=== PATIENT | female | born 1980 | race Caucasian/White ===

== ENCOUNTER 2016-08-28 14:57 | Emergency (ER) | payer MEDICAID ==
[~2016-08-28] VITALS: Ht 167.6 cm; Wt 115.0 kg
[2016-08-28 15:01] VITALS: TEMP 99.5
[2016-08-28] MEDS ORDERED: NOVOLOGMIX70/30 (15:08)
[2016-08-28] MEDS ORDERED: RESTASIS 60VL (15:09)
[2016-08-28] MEDS ORDERED: TIROSINT25 MC1 PO (15:09)
[2016-08-28] MEDS ORDERED: ZESTRIL40 MG PO (15:09)
[2016-08-28] MEDS ORDERED: LYRICA 100MG C100 M1 PO (15:10)
[2016-08-28] MEDS ORDERED: HCTZ12.5TAB PO (15:10)
[2016-08-28] MEDS ORDERED: PRILOSEC 20MG20 MG PO (15:11)
[2016-08-28] MEDS ORDERED: LIPITOR 10MG10 MG PO (15:11)
[2016-08-28] MEDS ORDERED: ILOTYCIN5 MG/GM OP (15:11)
[2016-08-28] MEDS ORDERED: LANTUS100 U/ML SQ (15:11)
[2016-08-28] MEDS ORDERED: PERCOCET 325 MG1 TA3 PO (15:12)
[2016-08-28 16:25] LABS: BASO # 0.1 (0.0-0.2); BASO % 0.5 % (0.0-2.0); EOS # 0.2 (0.0-0.7); EOS % 1.3 % (0-4.0); GRAN # 7.1 (1.4-6.5); GRAN % 60.8 % (42.2-75.2); LYMPH # 3.6 (1.2-3.4); LYMPH % 31.1 % (20.0-51.0); MEAN CELL VOLUME 86 fl (80.0-100.0); MEAN CORPUSCULAR HGB CONC 32 g/dl (33.0-37.0); MEAN PLATELET VOLUME 11.8 fl (7.4-10.4); MONO # 0.7 (0.1-0.6); MONO % 5.9 % (1.7-9.3); PLATELET COUNT 184 K/mm3 (130-400); RED BLOOD COUNT 4.17 M/mm3 (4.10-5.30); REDCELL DISTRIBUTION WIDTH-CV 12.9 % (11.5-14.5); WHITE BLOOD COUNT 11.7 K/mm3 (4.8-10.8)
[2016-08-28 16:26] LABS: HEMATOCRIT 35.8 % (37.0-47.0); HEMOGLOBIN 11.6 g/dl (12.5-16.0); MEAN CORPUSCULAR HEMOGLOBIN 28 pg (27.0-31.0)
[2016-08-28 17:04] LABS: ADJUSTED CALCIUM 9.7 mg/dL (8.4-10.2); ALBUMIN 3.4 gm/dL (3.5-5.0); BILIRUBIN,TOTAL 0.8 mg/dL (0.0-1.0); C-REACTIVE PROTEIN 5.4 mg/dL (0.0-0.9); CALCIUM 9.2 mg/dL (8.4-10.2); CREATININE, serum 1.26 mg/dL (0.52-1.25); POTASSIUM 3.5 mmol/L (3.4-5.0); TOTAL PROTEIN 7.7 gm/dL (6.4-8.2)
[2016-08-28] MEDS ORDERED: CLEOCIN HCL300 MG PO (17:39)
[2016-08-28 18:30] VITALS: BP 159/72; PULSE 92
== END 2016-08-28 18:30 | disposition home or self-care (01) ==
LOC: COL.ER 14:57
PROVIDERS: Emergency Medicine
DX: L03.116 Cellulitis of left lower limb (principal); E11.40 Type 2 diabetes mellitus with diabetic neuropathy, unspecified; E11.649 Type 2 diabetes mellitus with hypoglycemia without coma; Z79.4 Long term (current) use of insulin; I10 Essential (primary) hypertension
CPT/HCPCS: J7030

== ENCOUNTER 2021-05-01 16:46 | Inpatient (IN) | payer MEDICARE, MEDICAID ==
[~2021-05-01] VITALS: Ht 167.6 cm; Wt 107.6 kg
[~2021-05-01 16:46] MED LIST: CLEOCIN HCL300 MG PO; HCTZ12.5TAB PO; ILOTYCIN5 MG/GM OP; LANTUS100 U/ML SQ; LIPITOR 10MG10 MG PO; LYRICA 100MG C100 M1 PO; NOVOLOGMIX70/30; PERCOCET 325 MG1 TA3 PO; PRILOSEC 20MG20 MG PO; RESTASIS 60VL; TIROSINT25 MC1 PO; ZESTRIL40 MG PO
[2021-05-01 18:45] LABS: MEAN CELL VOLUME 98 fl (80.0-100.0); MEAN CORPUSCULAR HGB CONC 30 g/dl (33.0-37.0); MEAN PLATELET VOLUME 10.9 fl (7.4-10.4); PLATELET COUNT 467 K/mm3 (130-400); REDCELL DISTRIBUTION WIDTH-CV 15.9 % (11.5-14.5)
[2021-05-01 18:59] LABS: INR 1.3 (0.8-3.0); PROTHROMBIN TIME 14.6 SECONDS (9.7-12.8)
[2021-05-01 19:01] LABS: PARTIAL THROMBOPLASTIN TIME 29.1 SECONDS (26.0-37.0)
[2021-05-01 19:04] LABS: HEMATOCRIT 22.5 % (37.0-47.0); HEMOGLOBIN 6.8 g/dl (12.5-16.0); MEAN CORPUSCULAR HEMOGLOBIN 30 pg (27.0-31.0)
[2021-05-01 19:06] LABS: ALBUMIN 3.3 gm/dL (3.5-5.0); BILIRUBIN,TOTAL 0.3 mg/dL (0.0-1.0); CALCIUM 8.1 mg/dL (8.4-10.2); CREATININE, serum 3.93 (0.52-1.25); POTASSIUM 4.2 mmol/L (3.4-5.0); TOTAL PROTEIN 7.1 gm/dL (6.4-8.2)
[2021-05-01 19:17] LABS: TROPONIN-I 0.013 ng/mL (0.000-0.035)
[2021-05-01 19:39] LABS: ANISOCYTOSIS 1+; BAND 3 % (0-10); EOSINOPHIL 3 % (0-4); HYPOCHROMIA 1+; LYMPHOCYTE 15 % (20.0-51.0); METAMYELOCYTE 1 % (0-0); NEUTROPHILS 71 % (42.0-75.2); PLATELET ESTIMATE INCREASED (NORMAL)
[2021-05-01 19:40] LABS: OVALOCYTES 1+; POIKILOCYTOSIS 1+
[2021-05-01] MEDS ORDERED: AMITRIPTYLINE H50 M1 (20:38)
[2021-05-01] MEDS ORDERED: PROTONIX 40MG T40 MG (20:39)
[2021-05-01] MEDS ORDERED: ZYLOPRIM 100MG100 MG (20:39)
[2021-05-01] MEDS ORDERED: PROAMATINE 5MG T5 MG (20:40)
[2021-05-01] MEDS ORDERED: COUMADIN 1MG1 MG/TAB (20:41)
[2021-05-01] MEDS ORDERED: LYRICA 100MG C100 M1 (20:42)
[2021-05-01] MEDS ORDERED: LIPITOR20 MG (20:43)
[2021-05-01] MEDS ORDERED: COUMADIN 5MG5 MG/TAB (20:44)
[2021-05-01] MEDS ORDERED: LASIX 40MG TABL40 MG (20:45)
[2021-05-01 22:15] LABS: RETIC # 0.07 M/mm3 (0.02-0.16); RETIC % 2.9 % (0.5-3.52)
[2021-05-01 22:19] VITALS: BP 104/61; PULSE 102; TEMP 98.6
[2021-05-01 22:20] LABS: IRON,SERUM 33 ug/dL (35-150)
[2021-05-01 22:25] VITALS: BP 104/61; PULSE 102; TEMP 98.6
[2021-05-01 22:29] LABS: TOTAL IRON BINDING CAPACITY 159 ug/dL (265-497)
[2021-05-02] VITALS (14 sets, daily range): BP systolic 86–135; BP diastolic 45–68; PULSE 77–98; TEMP 97.5–98.6
--- NOTE | 2021-05-02 00:44 | NUR ---
Vancomycin Initial Dosing Pharmacy Note Ordering provider: Fareed Brown MD Indication/duration: OSTEO / 7 DAYS Relevant comorbidities: DM, ESRD ON HD MWF GOAL: 15-20 BMI: 37.7 WT: 105.9KG SCR:3.93 (ON HD) VD: 74.13 TMAX: 99.5 WBC: 18.7 WOUND CX AND BLOOD CX PENDING FOOT XR REPORTING CONCERN FOR INFECTIOUS PROCESS PER REPORT PT WAS PREVIOUSLY AT OSH AND RECEIVING IV ABX FOR TREATMENT. AFTER DISCUSSION WITH RN, PT, AND OSH HOUSE SUPRIVISER, IT WAS DETERMINED THAT THE PT RECEIVED 1GM OF VANCO ON 04/28/21 AND THE PT HAD DIALYZED LAST ON 05/01 FOR 4.5 HOURS. A RANDOM VANC LEVEL WAS OBTAINED AND REPORTED BACK AT 13.03. WILL PLAN TO DOSE BY LEVELS BASED ON HD SCHEDULE. WILL GIVE AN ADDITIONAL 750 MG DOSE TO [employer]ATIN [employer] LEVEL OF ~23. WILL FOLLOW HD SCHEDULE, LEVELS, AND TREATMENT PLANS FOR NEED TO ADJUST THERAPY. THANK YOU FOR THIS DOSING CONSULT!
--- NOTE | 2021-05-02 02:01 | NUR ---
PT BLOOD PRESSURE DURING 0000 VS WAS LOW, MAP OF 63. RECHECKED, DBP INCREASED TO 56. WILL CONTINUE TO MONITOR.
--- NOTE | 2021-05-02 04:06 | NUR ---
ORLIN RANDALL NOTIFIED OF LOW BP. RECHECKED MANUALLY AT THIS TIME. 98/60. INSTRUCTED TO MONITOR. PT CURRENTLY DENIES DIZZINESS, LIGHTHEADEDNESS OR SOA.
--- NOTE | 2021-05-02 04:46 | NUR ---
ORLIN RANDALL NOTIFIED TO VERIFY OKAY TO GIVE MORPHINE WITH DEPRESSED BLOOD PRESSURES. RECEIVED VERBAL VERIFICATION OKAY TO GIVE IF PATIENT REQUESTING.
[2021-05-02 07:06] LABS: MEAN CELL VOLUME 96 fl (80.0-100.0); MEAN CORPUSCULAR HGB CONC 30 g/dl (33.0-37.0); MEAN PLATELET VOLUME 11.4 fl (7.4-10.4); RED BLOOD COUNT 2.02 M/mm3 (4.10-5.30); REDCELL DISTRIBUTION WIDTH-CV 15.8 % (11.5-14.5)
[2021-05-02 07:15] LABS: HEMATOCRIT 19.3 % (37.0-47.0); HEMOGLOBIN 5.8 g/dl (12.5-16.0); MEAN CORPUSCULAR HEMOGLOBIN 29 pg (27.0-31.0); PLATELET COUNT 359 K/mm3 (130-400)
[2021-05-02 07:16] LABS: CALCIUM 7.4 mg/dL (8.4-10.2); CREATININE, serum 5.08 (0.52-1.25); POTASSIUM 3.3 mmol/L (3.4-5.0)
--- NOTE | 2021-05-02 07:18 | NUR ---
Critical hemoglobin result of 5.8 this am. ORLIN Kuo notified on the telephone.
--- NOTE | 2021-05-02 09:08 | NUR ---
SW met with the patient to discuss discharge plan. The patient lives in [place] with her mother, Radha Swift (ph#[phone]). She reports independence with ADLs and has a walker. She states that she just ordered a wheelchair and that it should be coming in soon. She states that her family is also putting in a wheelchair ramp. The patient states that she was set up with the primary care provider Angie Archer APRN at [facility]; but that she has not seen her yet. She receives her medications from [facility] in . She reports no difficulties obtaining her meds. The patient does not have a DPOA-HC, but she states that she does have one completed and that she designated her father, Victorino. She states that her father is in the hospital right now too and does not think he would be able to answer the phone. She reports that [facility] may have a copy of the document. The patient states that she is not and does not have any children. Her parents are her next of kin. The patient plans to return home with her mother upon discharge. SW to continue to monitor. *Discharge plan: home with mother*
[2021-05-02 10:01] LABS: BAND 4 % (0-10); EOSINOPHIL 2 % (0-4); HYPOCHROMIA 1+; LYMPHOCYTE 17 % (20.0-51.0); METAMYELOCYTE 2 % (0-0); NEUTROPHILS 63 % (42.0-75.2)
[2021-05-02 10:04] LABS: PLATELET ESTIMATE NORMAL (NORMAL)
[2021-05-02] MEDS ORDERED: INSULIN AS100 UNIT/4 SQ ×2 (12:17→12:19)
--- NOTE | 2021-05-02 17:11 | NUR ---
Pt. in MRI at this moment. Pt. progressing w/ plan of care. Original plan was for pt. to get dialysis after the MRI at 1430 today. MRI was not on schedule and pt. was picked up for the MRI around 1610. Plan was for PRBcs to be given in dialysis. Dialysis has been postponed today because pt. is still not back from the MRI. ORLIN Kuo and Dr. Benoit aware. Plan for pt. to get back from MRI and received the blood transfusion upon her return.
--- NOTE | 2021-05-02 23:12 | NUR ---
PT AMBULATED TO COMMODE, BLOOD NOTED IN URINE. ONE CLOT PRESENT.
--- NOTE | 2021-05-02 23:13 | NUR ---
PT BLOOD TRANSFUSTION ENDED AT 2245. PT TOLERATED WELL. VITAL SIGNS STABLE THROUGHOUT ADMINISTRATION.
--- NOTE | 2021-05-02 23:13 | NUR ---
PT IV SITE LEAKING, ATTEMPT OF REDRESS AND FLUSH, IV SITE CONTINUED TO LEAK. DISCONTINUED. NOTIFIED CHARGE NURSE OF HARD STICK.
[2021-05-02 23:33] LABS: HEMATOCRIT 27.3 % (37.0-47.0); HEMOGLOBIN 8.4 g/dl (12.5-16.0)
--- NOTE | 2021-05-02 23:35 | NUR ---
PT ULCERS RINSED WITH NORMAL SALINE, NEW NON-ADHERENT PADS PLACED.
--- NOTE | 2021-05-02 23:39 | NUR ---
ORLIN RANDALL NOTIFIED OF INCREASED H&H AFTER UNIT OF BLOOD. ALSO NOTIFIED OF HARD STICK AND LEAKING IV SITE, REQUEST CHANGE CLEOCIN TO PO ADMINISTRATION.
--- NOTE | 2021-05-02 23:46 | NUR ---
PT ALERT AND ORIENTED. PT RECEIVED UNIT OF BLOOD. PT ULCERS WRAPPED BY DAY SHIFT WITH GAUZE AND NON-ADHERENT PADS. REMOVED PER PATIENT REQUEST. PT LUNGS CLEAR UPON AUSCULTATION. ACTIVE BOWEL SOUNDS. PT CALL LIGHT WITHIN REACH.
[2021-05-03] VITALS (9 sets, daily range): BP systolic 100–132; BP diastolic 42–86; PULSE 91–113; TEMP 97.7–99.1
--- NOTE | 2021-05-03 04:02 | NUR ---
TROUBLE WITH DYNAMAP READING BLOOD PRESSURE, TAKEN MANUALLY AT THIS TIME. 132/86
[2021-05-03 07:26] LABS: MEAN CELL VOLUME 92 fl (80.0-100.0); MEAN CORPUSCULAR HGB CONC 31 g/dl (33.0-37.0); RED BLOOD COUNT 2.52 M/mm3 (4.10-5.30); REDCELL DISTRIBUTION WIDTH-CV 17.4 % (11.5-14.5)
--- NOTE | 2021-05-03 07:36 | NUR ---
Pt. progressing w/ plan of care. Plan for dialysis this AM, call received from Lynette, plan for dialysis at 0830. Breakfast ordered. Pt. with UROGYNECOLOGY PHYSICIAN at this time, OOB to use the bathroom. Safety maintained.
[2021-05-03 07:37] LABS: CALCIUM 7.4 mg/dL (8.4-10.2); CREATININE, serum 5.53 (0.52-1.25); HEMATOCRIT 23.2 % (37.0-47.0); HEMOGLOBIN 7.1 g/dl (12.5-16.0); MAGNESIUM 2.1 mg/dL (1.6-2.3); MEAN CORPUSCULAR HEMOGLOBIN 28 pg (27.0-31.0); PLATELET COUNT 188 K/mm3 (130-400); POTASSIUM 4.3 mmol/L (3.4-5.0)
--- NOTE | 2021-05-03 07:41 | NUR ---
PT CONTINUING ON PLAN OF CARE. PT HGB AND HCT INCREASED AFTER UNIT OF BLOOD. PT IV UNABLE TO BE RESTARTED THIS SHIFT, ABX AND PRN PAIN MEDICATION CHANGED TO ORAL ADMINISTRATION. PT FREE FROM INJURY THIS SHIFT. WOUND CARE PROVIDED TO BEST OF ABILITY, INFECTION MANAGED WITH ANTIBIOTICS.
[2021-05-03 08:45] LABS: BAND 1 % (0-10); EOSINOPHIL 4 % (0-4); LYMPHOCYTE 23 % (20.0-51.0); NEUTROPHILS 68 % (42.0-75.2)
[2021-05-03 08:46] LABS: ANISOCYTOSIS 1+; HYPOCHROMIA 3+; PLATELET ESTIMATE NORMAL (NORMAL)
--- NOTE | 2021-05-03 10:47 | NUR ---
New consults for the pt. today. stock clerk self service store Liz called and spoke with consult for surgery. Shruthi left a message for Dr. Kaminski for urology. This RN just called in consult w/ Dr. Almanza from ID. Pt. still in dialysis at the moment.
--- NOTE | 2021-05-03 12:01 | NUR ---
Patient tolerated HD tx with 4.1 L fluid removal today. Next planned HD tx on Saturday05/05/21 @ 0800.
--- NOTE | 2021-05-03 18:53 | NUR ---
Call received from PACU staff member the pt. now has a central line and is on her way back to the floor. Will check in to see if pt. is back and assess. Oncoming RN will be taking over shortly.
--- NOTE | 2021-05-03 22:30 | NUR ---
Patient is lying in bed, alert and oriented x4, complains of pain in both feet Morphine provided. No nausea or vomiting. SCDs in place. Contact precautions (MRSA). Asssessment completed. No further needs at this time. Call ligth within reach.
[2021-05-04] VITALS (213 sets, daily range): BP systolic 106–126; BP diastolic 55–89; PULSE 84–99; TEMP 98–99; O2SAT 77–100
--- NOTE | 2021-05-04 01:23 | NUR ---
Patient removed the gauze placed for both feet. The heel in the right looks dry. The left foot is warm, purple and immflamated. Patient refused to replace dressing stating it is too hot for her. Refused SCDs. Patient was reminded to keep DESULFURIZER MACHINE after asking for some jello. No further needs at this time. Call light within reach.
--- NOTE | 2021-05-04 07:05 | NUR ---
Patient has had a calm night. She required PRN medication for her feet. Waiting for her procedure today. Shift report will be given.
--- NOTE | 2021-05-04 07:37 | NUR ---
Pt. progressing w/ plan of care. Pt. sitting up in bed, awake. Pt. has been NPO since midnight for surgery today. Call light and belongings in reach.
[2021-05-04 07:57] LABS: MEAN CELL VOLUME 94 fl (80.0-100.0); MEAN CORPUSCULAR HGB CONC 30 g/dl (33.0-37.0); MEAN PLATELET VOLUME 11.2 fl (7.4-10.4); PLATELET COUNT 213 K/mm3 (130-400); REDCELL DISTRIBUTION WIDTH-CV 17.9 % (11.5-14.5)
[2021-05-04 07:58] LABS: CALCIUM 7.9 mg/dL (8.4-10.2); CREATININE, serum 4.91 (0.52-1.25); HEMATOCRIT 25.3 % (37.0-47.0); HEMOGLOBIN 7.6 g/dl (12.5-16.0); MEAN CORPUSCULAR HEMOGLOBIN 28 pg (27.0-31.0); POTASSIUM 4.8 mmol/L (3.4-5.0)
--- NOTE | 2021-05-04 08:06 | NUR ---
Call received from ORLIN Kuo, Shiela reports the radiologist called her to let her know the pt.'s central line IJ to her right neck would need to be pulled back 3cm. The superintendent warehouse Jaden was called to inquire who would need to pull back the central line 3cm. Jaden reports the surgeon will need to complete this task. Dr. Manuel notified on the telephone. Dr. Manuel aware, he reports he will be by some time this AM or this afternoon to pull back the central line 3cm. Dr. Manuel was inquiring if the central line worked. This RN explained to Dr. Manuel the central line still works and has positive blood return. Dr. Manuel OK with the central line to be used at this moment and he will make the adjustment today.
--- NOTE | 2021-05-04 10:16 | NUR ---
Pt. reports a ringing in her ears. ORLIN Kuo made aware, team in to round and assess pt. at this time.
[2021-05-04 16:43] LABS: ARTERIAL BLD GAS O2 SATURATION 98.3 % (92-100); ARTERIAL BLD GAS TCO2 CT 26.8; ARTERIAL BLOOD GAS BASE EXCESS 0.1 (-2-2); ARTERIAL BLOOD GAS HCO3 25.4 meq/L (22-26); ARTERIAL BLOOD GAS PCO2 44.6 mmHg (35-45); ARTERIAL BLOOD GAS PO2 116.2 mmHg (80-100); ARTERIAL BLOOD GAS pH 7.37 (7.35-7.45)
--- NOTE | 2021-05-04 16:45 | NUR ---
PT TRANSFERED DOWN FROM SURGICAL POST OP FOR RESPIRATORY DEPRESSION. PT IS LETHARGIC BUT ORIENTED. PT OPENS EYS TO VOICE. PT'S VSS. PT ON 4L SIMPLE MASK. PT HAS DRESSING TO LEFT FOOT FROM OR. PT HAS AN ULCER TO RIGHT HEEL AND DRESSING CHANGED. PT ORIENTED TO ROOM AND FLOOR. BG TAKEN. PT'S DAD UPDATED. WILL CONTINUE TO MONITOR.
[2021-05-04 16:56] LABS: ALBUMIN 3.1 gm/dL (3.5-5.0); BILIRUBIN,TOTAL 0.3 mg/dL (0.0-1.0); CALCIUM 7.8 mg/dL (8.4-10.2); CREATININE, serum 5.4 (0.52-1.25); POTASSIUM 5.6 mmol/L (3.4-5.0); TOTAL PROTEIN 6.8 gm/dL (6.4-8.2)
[2021-05-04 16:58] LABS: MEAN CELL VOLUME 93 fl (80.0-100.0); MEAN CORPUSCULAR HGB CONC 30 g/dl (33.0-37.0); MEAN PLATELET VOLUME 10.5 fl (7.4-10.4); RED BLOOD COUNT 2.58 M/mm3 (4.10-5.30); REDCELL DISTRIBUTION WIDTH-CV 17.8 % (11.5-14.5)
--- NOTE | 2021-05-04 17:00 | NUR ---
Pt. came back from the OR procedure and brought to her room. This RN was in another pt.'s room at the time of the pt.'s arrival. This RN was notified the pt. was not responding. The pt. had a pulse but appeared to be in respiratory distress. This RN communicated w/ Dr. Schmidt and ORLIN Kuo to let them know pt. just came back to the OR and this RN hadn't yet been in the room. retail supervisor Jaden and ICU staff in to help assist with pt.'s condition. Pt. was able to speak to staff and answer questions but still drowsy. Pt. was placed on oxygen. Pt. was transferred to the ICU bed 3. Report given to KAREN Valdez.
[2021-05-04 17:05] LABS: HEMATOCRIT 24.1 % (37.0-47.0); HEMOGLOBIN 7.2 g/dl (12.5-16.0); MEAN CORPUSCULAR HEMOGLOBIN 28 pg (27.0-31.0); PLATELET COUNT 420 K/mm3 (130-400)
--- NOTE | 2021-05-04 17:30 | NUR ---
At [facility] 1623 I was called to code blue in room 316. Upon arrival in room there were about 10 people in the room, a mix of nurses and Dr. Schmidt. As the ICU Charge, I took it upon myself to ask all unnecessary staff to exit the room, leaving about 5-6 essential persons in the room. This RN performed an initial assessment. Patient was not responding to stimulation, pulses present, respirations not seen and SPO2 in 50-60s%. Patient was bagged and I asked for anesthesia to come into the room to evaluation patient and possibly intubate if she continued this way. Anesthesia enters the room, briefly bags patient, performs jaw thrust for a few minutes. Patient taking slow deep breaths, and eventually rouses to stimulation and speech. Labs, ABG, EKG taken. BP hypertensive throughtout the situation. Dr. Schmidt orders for patient to be transferred to ICU for closer monitoring. Patient taken to ICU room 3 by myself and KAREN Salinas transfer to ICU.
[2021-05-04 18:35] LABS: ANISOCYTOSIS 1+; BAND 2 % (0-10); HYPOCHROMIA 3+; LYMPHOCYTE 24 % (20.0-51.0); NEUTROPHILS 69 % (42.0-75.2); POLYCHROMASIA 1+
[2021-05-05] VITALS (724 sets, daily range): BP systolic 91–117; BP diastolic 52–82; PULSE 74–90; TEMP 97.1–98.1; O2SAT 48–100
[2021-05-05 05:43] LABS: MEAN CELL VOLUME 93 fl (80.0-100.0); MEAN CORPUSCULAR HGB CONC 31 g/dl (33.0-37.0); MEAN PLATELET VOLUME 10.4 fl (7.4-10.4); RED BLOOD COUNT 3.92 M/mm3 (4.10-5.30)
[2021-05-05 05:44] LABS: HEMATOCRIT 36.4 % (37.0-47.0); HEMOGLOBIN 11.1 g/dl (12.5-16.0); MEAN CORPUSCULAR HEMOGLOBIN 28 pg (27.0-31.0); PLATELET COUNT 240 K/mm3 (130-400)
[2021-05-05 05:50] LABS: BILIRUBIN,TOTAL 0.3 mg/dL (0.0-1.0); CALCIUM 7.5 mg/dL (8.4-10.2); CREATININE, serum 5.84 (0.52-1.25); POTASSIUM 4.4 mmol/L (3.4-5.0); TOTAL PROTEIN 6.7 gm/dL (6.4-8.2)
[2021-05-05 06:17] LABS: ANISOCYTOSIS 3+; BASOPHIL 1 % (0-2); EOSINOPHIL 2 % (0-4); HYPOCHROMIA 3+; LYMPHOCYTE 29 % (20.0-51.0); METAMYELOCYTE 1 % (0-0); MYELOCYTE 2 % (0-0); NEUTROPHILS 61 % (42.0-75.2); NUCLEATED RED BLOOD CELL 1 (0-6); PLATELET ESTIMATE NORMAL (NORMAL)
--- NOTE | 2021-05-05 10:25 | NUR ---
Patient o2 on monitor in the 40's with a good wave form. Entered room and observed that patient had removed her oxygen mask and appeared very drowsy. After verbal and physical stimuli patient opened eyes and responeded although still drowsy. 02 replaced at 6 L per oxymask and o2 increased back to upper 90's. Dr. Brown at bedside during this time. Will obtain ABG and place on BIPAP. RT notified.
[2021-05-05 10:55] LABS: ARTERIAL BLD GAS TCO2 CT 25.4; ARTERIAL BLOOD GAS BASE EXCESS -1.7 (-2-2); ARTERIAL BLOOD GAS PCO2 45.2 mmHg (35-45); ARTERIAL BLOOD GAS PO2 88.9 mmHg (80-100); ARTERIAL BLOOD GAS pH 7.34 (7.35-7.45)
--- NOTE | 2021-05-05 11:26 | NUR ---
Updated KALI Hubbard redarding patient status. Will stay down in ICU due to episode of respiratory depression this moring. Patient did not void during shift leader. Placed on bedpan this morning but was unable to void. Haydee stated patients ability to void has been decreasing over the last several weeks. Scheduled for dialysis this afternoon. Will continue to monitor.
--- NOTE | 2021-05-05 14:30 | NUR ---
Assisted up to commode. Tolerated transfer well. KAREN Rya at bedside to start dialysis and provided assistance back to bed. VS stable at this time; will continue to monitor.
--- NOTE | 2021-05-05 15:06 | NUR ---
Called Dr. Brito office for a consult. Unavailable but left message with dispatcher clerk and faxed a face sheet over to the clinic.
--- NOTE | 2021-05-05 17:23 | NUR ---
PATIENT HYPOTENSIVE WITH INCREASED FLUID REMOVAL, RESOLVED WITH DECREASED UFR. REMOVED 1.5 L OF FLUID TODAY. NEXT PLANNED HD TX PENDING LABS & PATIENT ASSESSMENT.
--- NOTE | 2021-05-05 19:42 | NUR ---
Updated family via telephone;all questions and concerns addressed at this time.
[2021-05-05 22:52] LABS: COLLECTION METHOD CATHETER
[2021-05-05 23:03] LABS: BUDDING YEAST Present /hpf; PH 5 (5-8); SQUAMOUS EPITHELIAL 0-2 /hpf; URINE APPEARANCE Cloudy; URINE BACTERIA Rare /hpf; URINE BILIRUBIN Negative (NEGATIVE); URINE BLOOD 1+ (NEGATIVE); URINE COLOR Yellow; URINE GLUCOSE Negative (NEGATIVE); URINE KETONE Negative (NEGATIVE); URINE LEUKOCYTE ESTERASE 3+ (NEGATIVE); URINE NITRATE Negative (NEGATIVE); URINE PROTEIN(semi-quant) 2+ (NEGATIVE); URINE RBC None Seen /hpf; URINE UROBILINOGEN Negative (NEGATIVE)
[2021-05-06] VITALS (521 sets, daily range): BP systolic 80–127; BP diastolic 47–79; PULSE 68–106; TEMP 97.8–98.9; O2SAT 76–100
--- NOTE | 2021-05-06 | NUR ---
PT MADE NPO AT THIS TIME
[2021-05-06 05:52] LABS: MEAN CELL VOLUME 96 fl (80.0-100.0); MEAN CORPUSCULAR HGB CONC 30 g/dl (33.0-37.0); MEAN PLATELET VOLUME 10.4 fl (7.4-10.4); RED BLOOD COUNT 2.26 M/mm3 (4.10-5.30); REDCELL DISTRIBUTION WIDTH-CV 17.9 % (11.5-14.5)
[2021-05-06 06:14] LABS: HEMATOCRIT 21.7 % (37.0-47.0); HEMOGLOBIN 6.6 g/dl (12.5-16.0); MEAN CORPUSCULAR HEMOGLOBIN 29 pg (27.0-31.0); PLATELET COUNT 342 K/mm3 (130-400)
[2021-05-06 06:17] LABS: CALCIUM 7.4 mg/dL (8.4-10.2); CREATININE, serum 4.18 (0.52-1.25); POTASSIUM 4.1 mmol/L (3.4-5.0)
--- NOTE | 2021-05-06 06:34 | NUR ---
REPORTED CRITICAL HBG 6.6 TO ROISE JONES WITH [facility]. PREVIOUSLY ATTEMPTED TO NOTIFY DR. MONROE AT 0629 AND WAS TOLD TO CALL BACK IN 10 MINUTES.
--- NOTE | 2021-05-06 06:37 | NUR ---
PT A/O X4. UNEVENTFUL NIGHT. AGREEABLE TO WEAR BIPAP DESPITE NOT LIKING IT. STAND PIVOT TO COMMODE X2. PT'S RIGHT HEEL WAS OPEN TO AIR ON THIS RN'S ARRIVAL, REPLACED DRESSING WITH TELFA AND KERLIX. RIGHT IJ TRIPLE LUMEN, ALL PORTS FLUSH AND ASPIRATE WELL. PT RESTING IN BED WITH CALL LIGHT IN REACH.
[2021-05-06 06:48] LABS: ANISOCYTOSIS 1+; BAND 4 % (0-10); EOSINOPHIL 1 % (0-4); HYPOCHROMIA 3+; LYMPHOCYTE 26 % (20.0-51.0); METAMYELOCYTE 2 % (0-0); MYELOCYTE 1 % (0-0); NEUTROPHILS 65 % (42.0-75.2); PLATELET ESTIMATE NORMAL (NORMAL)
--- NOTE | 2021-05-06 08:10 | NUR ---
Patient arouses to verbal stimuli, alert and oriented, answers questions appropriately. See assessment. LLE dressing with drainage noted, NWB. RLE dressing changed, reddened area noted to heel, blanchable. NWB to right heel. Bipap in place. Lungs decreased in bases, clear in upper lobes. VSS. No c/o at this time.
--- NOTE | 2021-05-06 10:00 | NUR ---
To surgery with surgical staff at this time. Consent signed and witnessed.
--- NOTE | 2021-05-06 11:44 | NUR ---
Patient returned post I/D left foot incision at 1055. Assessment unchanged.
[2021-05-07 03:36] VITALS: BP 135/60; PULSE 91; TEMP 98
[2021-05-07 07:13] VITALS: BP 138/75; PULSE 91; TEMP 98.3
[2021-05-07 07:52] LABS: INR 1.2 (0.8-3.0); PROTHROMBIN TIME 13.4 SECONDS (9.7-12.8)
[2021-05-07 08:03] LABS: CALCIUM 7.2 mg/dL (8.4-10.2); CREATININE, serum 5.2 (0.52-1.25); MAGNESIUM 2.1 mg/dL (1.6-2.3); POTASSIUM 4.4 mmol/L (3.4-5.0)
[2021-05-07 09:30] LABS: MEAN CORPUSCULAR HGB CONC 32 g/dl (33.0-37.0); MEAN PLATELET VOLUME 9.8 fl (7.4-10.4); PLATELET COUNT 424 K/mm3 (130-400); RED BLOOD COUNT 2.86 M/mm3 (4.10-5.30); REDCELL DISTRIBUTION WIDTH-CV 17.8 % (11.5-14.5)
[2021-05-07 09:34] LABS: HEMOGLOBIN 8.2 g/dl (12.5-16.0); MEAN CELL VOLUME 91 fl (80.0-100.0); MEAN CORPUSCULAR HEMOGLOBIN 29 pg (27.0-31.0)
--- NOTE | 2021-05-07 09:45 | NUR ---
Patient alert and oriented, answers questions appropriately. See assessment. LLE with foot dressing CDI, no redness noted outside of dressing. NWB LLE. RLE heel ulcer with redness and black noted to wound bed, blanchable. Dressing to RLE changed. Lungs decreased in bases, clear in upper lobes. Respers even and unlabored. RIJ with dressing CDI, all lumens flush with good blood return noted. No c/o at this time.
[2021-05-07 11:05] LABS: BAND 1 % (0-10); LYMPHOCYTE 21 % (20.0-51.0); METAMYELOCYTE 2 % (0-0); NEUTROPHILS 75 % (42.0-75.2); PLATELET ESTIMATE INCREASED (NORMAL)
[2021-05-07 11:06] LABS: ANISOCYTOSIS 1+
[2021-05-07 12:00] VITALS: BP 90/66; PULSE 87; TEMP 97.8
[2021-05-07 16:00] VITALS: BP 144/71; PULSE 90; TEMP 98
[2021-05-07 19:07] VITALS: BP 130/77; PULSE 89; TEMP 98.5
--- NOTE | 2021-05-07 19:30 | NUR ---
Report received, assumed care for certified orthoptist. Assessment complete. VS stable. A&Ox3. Denies nausea/shortness of breath. Dressing to left foot-old drainage noted-has been re-enforced. Dressing to right heel feel off. Patient states it has fallen off all day. Triple lumen RIJ flushes without difficulty/good blood return. Denies current needs. Call light in reach. Will monitor.
--- NOTE | 2021-05-07 21:52 | NUR ---
Dressing applied to right heel-4x4/kerlix.
--- NOTE | 2021-05-07 22:00 | NUR ---
Called with c/o pain to bilat feet. Rating pain 7/10 on pain scale-described as constant throbbing. Percocet 1/[address] order.
[2021-05-07 23:15] VITALS: BP 136/71; PULSE 85; TEMP 98.5
[2021-05-08] VITALS (11 sets, daily range): BP systolic 95–149; BP diastolic 51–74; PULSE 86–104; TEMP 97.8–98.2
--- NOTE | 2021-05-08 05:21 | NUR ---
Rested off and on this shift. VS remained stable. Had several urine/BM outputs that were unmeasured. Has been NPO since 0000. Consent signed and on front of chart for surgical procedure later today. AM labs drawn from central line. Flushed well with good blood return. Denies current needs. Call light in reach. Will monitor.
[2021-05-08 05:27] LABS: BASO # 0.1 (0.0-0.2); BASO % 0.7 % (0.0-2.0); EOS # 0.2 (0.0-0.7); EOS % 1.9 % (0-4.0); GRAN # 7.9 (1.4-6.5); GRAN % 64.2 % (42.2-75.2); HEMATOCRIT 25.7 % (37.0-47.0); HEMOGLOBIN 8.1 g/dl (12.5-16.0); LYMPH # 3.1 (1.2-3.4); LYMPH % 24.9 % (20.0-51.0); MEAN CELL VOLUME 91 fl (80.0-100.0); MEAN CORPUSCULAR HEMOGLOBIN 29 pg (27.0-31.0); MEAN CORPUSCULAR HGB CONC 32 g/dl (33.0-37.0); MONO # 0.9 (0.1-0.6); MONO % 6.9 % (1.7-9.3); PLATELET COUNT 211 K/mm3 (130-400); RED BLOOD COUNT 2.84 M/mm3 (4.10-5.30)
[2021-05-08 05:41] LABS: CALCIUM 7.1 mg/dL (8.4-10.2); POTASSIUM 4.3 mmol/L (3.4-5.0)
--- NOTE | 2021-05-08 06:35 | NUR ---
awake resting in bed, bedside shift report received from Nakia RN, dialysis nurse in and assisting her into WC to go to dialysis
--- NOTE | 2021-05-08 08:00 | NUR ---
remains in dialysis, appears to be dozing in dialysis chair, blood sugar obtained
--- NOTE | 2021-05-08 09:20 | NUR ---
remains in dialysis, renal ultrasound completed while in dialysis, full assessment now completed, see interventions for further info, dozes at intervals
--- NOTE | 2021-05-08 09:54 | NUR ---
PATIENT TOLERATED HD TX WITH 1.7L FLUID REMOVAL TODAY. NEXT PLANNED HD TX ON Saturday05/10/2021 @ 0800.
--- NOTE | 2021-05-08 10:00 | NUR ---
remains in dialysis
--- NOTE | 2021-05-08 10:30 | NUR ---
returned from dialysis, am meds given and takes without difficulty, denies needs
--- NOTE | 2021-05-08 11:54 | NUR ---
Vancomycin Follow-up Pharmacy Note Current regimen: Vancomycin dosing based on levels Vancomycin random level: 12.99 (pre-dialysis) Adjustments: Will give Vancomycin 750 mg IV x1 dose post dialysis today. Pharmacy will continue to closely monitor and check random level prior to next dialysis session.
--- NOTE | 2021-05-08 12:34 | NUR ---
resting in bed waiting to go to surgery
--- NOTE | 2021-05-08 13:15 | NUR ---
to surgery per bed
--- NOTE | 2021-05-08 15:45 | NUR ---
returned to room from surgery, awake and alert, IV infusing per gravity, dressing to bilateral feet CD&I, antibiotic started, instructed it is OK to order something to eat, denies needs
--- NOTE | 2021-05-08 16:30 | NUR ---
awake looking at phone, denies needs
--- NOTE | 2021-05-08 17:00 | NUR ---
resting quietly, heart rate strong and regular, lungs CTA, dressings to be bilateral feet CD&I, right subclavian intact
--- NOTE | 2021-05-08 17:30 | NUR ---
sitting up in bed eating supper, denies needs
--- NOTE | 2021-05-08 18:48 | NUR ---
bedside shift report given to KAREN Yee
--- NOTE | 2021-05-08 19:15 | NUR ---
Report received, assumed care for networking engineer. Assessment complete. A&Ox3. Denies need for pain medication at this time. Denies nausea/shortness of breath. VS remain stable. Splint/dressing to left foot CDI. Elevated on pillow. Right foot dressing with old [id number] at this time. Plan of care discussed for this shift to include meds/calling for questions/concerns. Verbalizes understanding. Call light in reach. Will monitor.
--- NOTE | 2021-05-08 23:27 | NUR ---
PATIENT REQUESTED TO NOT SLEEP ON BIPAP ON THE NIGHT OF 05/07/21. SHE KEPT HER OXYGEN SATURATION ABOVE 92% ON ROOM AIR THROUGHOUT THE NIGHT AND DAY OD 05/08/21 SO THE BIPAP WAS PULLED OUT OF THE ROOM.
--- NOTE | 2021-05-09 00:45 | NUR ---
Called with c/o pain to left foot-rating pain 8/10 on pain scale-described as constant throbbing. Percocet given per dr jean-baptiste.
[2021-05-09 00:47] VITALS: BP 140/67; PULSE 95; TEMP 98
[2021-05-09 03:23] VITALS: BP 136/53; PULSE 100; TEMP 98
--- NOTE | 2021-05-09 03:34 | NUR ---
Called to room because patient removed dressing to right foot. States she doesnt like having things on her feet and its driving her crazy. Requesting replacement of dressing now. Right foot redressed with xeroform/4x4s/kerlix. Also states her pain is 9/10 after receiving pain meds at 0100. Spoke with ORLIN [id number]-[id number]-[id number] order received to give another half tab percocet. Patient upset that she isnt aloud to have IV pain meds. Encouraged her to speak with Ortho today. Verbalizes understanding. Will monitor.
[2021-05-09 06:50] LABS: MEAN CELL VOLUME 93 fl (80.0-100.0); MEAN CORPUSCULAR HGB CONC 31 g/dl (33.0-37.0); PLATELET COUNT 149 K/mm3 (130-400); RED BLOOD COUNT 2.67 M/mm3 (4.10-5.30); REDCELL DISTRIBUTION WIDTH-CV 17.9 % (11.5-14.5)
[2021-05-09 06:57] LABS: CALCIUM 7.6 mg/dL (8.4-10.2); CREATININE, serum 4.79 (0.52-1.25); POTASSIUM 5.1 mmol/L (3.4-5.0)
[2021-05-09 07:00] LABS: HEMATOCRIT 24.8 % (37.0-47.0); HEMOGLOBIN 7.6 g/dl (12.5-16.0); MEAN CORPUSCULAR HEMOGLOBIN 28 pg (27.0-31.0)
[2021-05-09 07:55] VITALS: BP 135/87; PULSE 90; TEMP 98
[2021-05-09 12:13] VITALS: BP 145/74; PULSE 87; TEMP 98
[2021-05-09 15:34] LABS: HEMOGLOBIN 7.8 g/dl (12.5-16.0)
[2021-05-09 16:00] VITALS: BP 136/86; PULSE 88; TEMP 98.7
--- NOTE | 2021-05-09 16:39 | NUR ---
PT notified RICK that he would recommed a wheelchair for the patient at home. He would also recommend a sliding board if the patient would use it. SW met with the patient to review d/c plan. The patient still plans on returning home with her mother, Radha (ph#[phone]), in [place] upon discharge. The patient states that she would like to order a wheelchair and was interested in getting it from [facility]. She states that her mother can picking machine operator helper the wheelchair from [facility]. The patient states that she is able to pivot and is not interested in a sliding board at this time. SW discussed home health services. The patient was interested in home health and was agreeable to [facility]. SW contacted and faxed a referral to Carline at [facility] Awaiting screen. SW contacted the patient's mother, Radha, and reviewed the above. Radha is in agreement to the plan and states that she can picking machine operator helper the wheelchair from [facility] tomorrow afternoon.
--- NOTE | 2021-05-09 18:00 | NUR ---
Patient has been doing well this afternoon. Her pain is better controlled. She stated she go dizzy when she got up to the side of bed. Her BP was stable. She did not want her insulin because she was worried that would make her more dizzy. She is also not eating supper. Ric delivered her splint today. No other changes at this time. Call light within reach.
[2021-05-09 19:52] VITALS: BP 138/66; PULSE 96; TEMP 98
--- NOTE | 2021-05-09 20:00 | NUR ---
Bedside shift report received, assumed care for retail shift leader. Assessment complete. VS stable. A&Ox3. Denies nausea/shortness of breath. Rating pain 7/10 on pain scale to left foot-described as constant throbbing-percocet given per dr order. Plan of care discussed for this shift to include meds/pain control/calling for questions/concerns. Verbalizes understanding. Call light in reach. Will monitor.
[2021-05-10] VITALS (7 sets, daily range): BP systolic 108–139; BP diastolic 57–78; PULSE 77–93; TEMP 97.9–98.7
--- NOTE | 2021-05-10 02:13 | NUR ---
Called c/o pain to left lower extremity-rating pain 8/10 on pain scale-described as constant throbbing. Percocet given per dr jean-baptiste. Also states that her left lower extremity is numb up to the thigh-states she has neuropathy and she cant have anything on her legs because it bothers her. Requesting dressing/splint be taken off stating "its to tight and I dont have any circulation." Checked for swelling around the splint and I can insert several fingers between the splint and her calf. Color of extremity around cast is WNL. Unable to check pedal pulses due to splint. Explained that I was unable to remove the splint due to doctors orders to leave in place until boot can be placed. Instructed to elevate on pillows. Denies any other questions/concerns. Call light in reach. Will monitor.
--- NOTE | 2021-05-10 05:36 | NUR ---
Rested later this shift after receiving percocet for pain and elevating legs. Denied nausea/shortness of breath. VS remained stable. Labs drawn from [facility] at right IJ site without difficulty. Plan for dialysis this AM. Denies needs. Call light in reach. Will monitor.
[2021-05-10 05:51] LABS: HEMOGLOBIN 7.1 g/dl (12.5-16.0); MEAN CELL VOLUME 93 fl (80.0-100.0); MEAN CORPUSCULAR HEMOGLOBIN 29 pg (27.0-31.0); MEAN CORPUSCULAR HGB CONC 31 g/dl (33.0-37.0); MEAN PLATELET VOLUME 11.3 fl (7.4-10.4); PLATELET COUNT 206 K/mm3 (130-400); RED BLOOD COUNT 2.47 M/mm3 (4.10-5.30); REDCELL DISTRIBUTION WIDTH-CV 17.6 % (11.5-14.5)
[2021-05-10 06:04] LABS: CALCIUM 7.4 mg/dL (8.4-10.2); CREATININE, serum 6.58 (0.52-1.25); POTASSIUM 5.2 mmol/L (3.4-5.0)
[2021-05-10] MEDS ORDERED: VANCOCIN HCL1 GM IV ×2 (11:25→12:03)
[2021-05-10] MEDS ORDERED: MAXIPIME2 GM IV (11:25)
--- NOTE | 2021-05-10 11:30 | NUR ---
Patient is hoping to go home today. Explained that is not likely due to her getting dialysis later and that she needs a wheel chair. She was supposed to get dialysis at 1100 but they moved it to about 1500. Dressing to left foot is C/D/I. It was changed at 0730 by Eli ORDAZ. Splint placed to left foot. Discussed what she can do with weight to her left foot, ortho said slight heel touch, no ambulation yet. No other changes at this time. Call light within reach.
--- NOTE | 2021-05-10 11:47 | NUR ---
Vancomycin Follow-up Pharmacy Note Current regimen: Vancomycin dosing based on levels Vancomycin random level: 16.23 (pre-dialysis) Adjustments: Will give Vancomycin 500 mg IV x1 post dialysis today. Pharmacy will continue to closely monitor and check Vancomycin level prior to next dialysis session.
[2021-05-10] MEDS ORDERED: FLAGYL500 MG PO (14:40)
--- NOTE | 2021-05-10 16:35 | NUR ---
PATIENT TOLERATED HD TX WITH 2.7L FLUID REMOVAL. NEXT PLANNED HD TX ON Saturday05/12/2021 @ DIALYSIS CLIN[facility] @ 0600.
--- NOTE | 2021-05-10 16:35 | NUR ---
Alison, at [facility], reports that they are able to accept the patient for services. ID is recommending IV antibiotics: Cefepime and Vanc, for 6 weeks and to be administered during dialysis. RICK staffed with the banquet prep cook, Dr. Benoit. Dr. Benoit reports that plan is for the patient to continue her dialysis at [facility] in [place]. He states that he has already spoken to Cherie at [facility] and the patient is able to receive the IV antibiotics there during dialysis. RICK contacted Cherie at [facility]. Cherie reports that they just need the scripts for the IV antibiotics and they will be able to administer the antibiotics to her, during her next session. RICK faxed the scripts to [facility] in [place]. RICK updated the patient and
--- NOTE | 2021-05-10 19:00 | NUR ---
Patient was supposed to have a CT of her left leg after dialysis. The special procedures tech was notified. He stated that the order did not make sense and wanted it clarified. Explained the CT techs from day shift did not say anything was wrong with the order. He asked for the ordering physicians phone number, let him know he could call Aleta BASS for the hospitalist. Patient was still asking about going home this evening, explained not until tomorrow. No other changes at this time. Call light within reach.
--- NOTE | 2021-05-10 22:12 | NUR ---
PT TAKEN TO CT @ THIS TIME.
--- NOTE | 2021-05-10 23:32 | NUR ---
PT STATES THAT HER RIDE TO TAKE HER HOME TOMORROW WILL NOT BE ABLE TO COME GET HER UNTIL 5PM. ASSURES PT THAT THIS INFORMATION WILL GET PASSED ALONG IN REPORT.
--- NOTE | 2021-05-11 01:00 | NUR ---
PT STATES THAT PAIN PILL GIVEN HAD NOT HELPED WITH LEFT LEG PAIN. RATES PAIN /. 2ND NORCO GIVEN. PT EATS SALTINE CRACKERS WITH PILL ET SIPS ON WATER.ICE PACK TAKEN OFF OF LEFT UPPER LEG @ THIS TIME. PT STATES THAT ICE SEEMS TO HELP WITH PAIN. SPLINT WAS OFF OF LEFT LEG, IS AGREEABLE TO PUTTING SPLINT BACK ON. LEFT LEG ELEVATED WITH PILLOWS. PT DENIES OTHER NEEDS. CALL LIGHT WITHIN REACH.
[2021-05-11 03:27] VITALS: BP 130/72; PULSE 83; TEMP 98.1
--- NOTE | 2021-05-11 05:15 | NUR ---
BLOOD DRAWN FROM BROWN PORT ON CENTRAL LINE FOR LABS. PORT FLUSHES EASILY WITH BRISK BLOOD RETURN. DRESSING IS INTACT. PT RATES PAIN OF LEFT LEG 8/10. PAIN MEDICATION ADMINISTERED. SPLINT IN PLACE ET LEFT IS ELEVATED ON PILLOWS. PT DENIES OTHER NEEDS @ THIS TIME. CALL LIGHT WITHIN REACH.
[2021-05-11 07:26] LABS: MEAN CELL VOLUME 94 fl (80.0-100.0); MEAN CORPUSCULAR HGB CONC 31 g/dl (33.0-37.0); MEAN PLATELET VOLUME 11.1 fl (7.4-10.4); PLATELET COUNT 230 K/mm3 (130-400); RED BLOOD COUNT 2.52 M/mm3 (4.10-5.30); REDCELL DISTRIBUTION WIDTH-CV 17.4 % (11.5-14.5)
[2021-05-11 07:30] VITALS: BP 105/63; PULSE 79; TEMP 98.1
[2021-05-11 07:35] LABS: CALCIUM 7.6 mg/dL (8.4-10.2); CREATININE, serum 5.39 (0.52-1.25); POTASSIUM 5.3 mmol/L (3.4-5.0)
[2021-05-11 07:39] LABS: HEMATOCRIT 23.7 % (37.0-47.0); HEMOGLOBIN 7.3 g/dl (12.5-16.0); MEAN CORPUSCULAR HEMOGLOBIN 29 pg (27.0-31.0)
[2021-05-11 10:00] VITALS: BP 96/66; PULSE 103; TEMP 98.1
[2021-05-11] MEDS ORDERED: DIFLUCAN200 MG PO (10:52)
[2021-05-11] MEDS ORDERED: PLAVIX 75MG TAB75 MG PO (10:55)
[2021-05-11] MEDS ORDERED: PERCOCET 325 MG1 TA3 PO (10:55)
[2021-05-11] MEDS ORDERED: AMITRIPTYLINE H50 M1 PO (10:56)
[2021-05-11] MEDS ORDERED: ZYLOPRIM 100MG100 MG PO (10:59)
[2021-05-11] MEDS ORDERED: NOVOLOG 100U100 U/M1 SQ (10:59)
[2021-05-11] MEDS ORDERED: LASIX 80MG TABL80 MG PO (11:00)
--- NOTE | 2021-05-11 11:00 | NUR ---
Patient will be discharging this afternoon. Minimal complaints of nausea or vomiting. Discussed plan for discharge. She has been sitting up in the wheel chair. She is getting her belongings together for discharge. Her family won't be here until about 1700. Discussed some of her appointments and medications for discharge. No other changes at this time. Call light within reach.
--- NOTE | 2021-05-11 11:10 | NUR ---
SW attended clinical rounds. The hospitalist is ready to d/c the patient today. The patient is to discharge back home with her mother today, 05/11, and home health services for fpc/PT/OT from [facility] . RICK notified and faxed d/c orders to Cydni at [facility] . The patient is to receive her IV antibiotics during dialysis at [facility]. No additional needs at this time.
--- NOTE | 2021-05-11 15:45 | NUR ---
TLC discontinued from [facility]. Sutures removed, they were tight and hard to get out. End of catheter was blunt, no frayed. Held pressure for 15mins. Placed gauze and tegader to site. Had patient lay flat for 30mins. Patient tolerated well. No other changes at this time. Call light within reach.
--- NOTE | 2021-05-11 17:00 | NUR ---
Patient is discharging home. Discharge instructions discussed with patient. No questions verbalized. Central line discontinued before discharge. All belongings packed up and sent with patient. Her medications were sent with patient. Dressing to right heel. Reminded her of the weight restriction for her left foot. She stated her wheel chair is already at home waiting for her. She will be getting her antibiotics at dialysis. Showed her the scripts she needs to take to dialysis with her. Copies of discharge instructions sent with patient. Patient walked out via wheel chair by Kristin KYLE.
[2021-05-12] MEDS ORDERED: NOVOLOG FLEX100 U/ML SQ (13:24)
== END 2021-05-11 17:00 | disposition home health service (06) | DRG 616 ==
LOC: COL.ER 16:46 → SURG 20:21 → ICU 20:21 → MEDICAL 20:21 → ICU 05-04 16:36 → SURG 05-06 18:20
PROVIDERS: Internal Medicine; Physician Assistant; Student in an Organized Health Care Education/Training Program; ADMIT Orthopaedic Surgery
PROC: 5A1D70Z Performance of Urinary Filtration, Intermittent, Less than 6 Hours Per Day (ICD-10-PCS; 2021-05-02)
PROC: 02HV33Z Insertion of Infusion Device into Superior Vena Cava, Percutaneous Approach (ICD-10-PCS; 2021-05-03)
PROC: 0Y6N0ZB Detachment at Left Foot, Partial 2nd Ray, Open Approach (ICD-10-PCS; 2021-05-04)
PROC: 0Y6N0Z9 Detachment at Left Foot, Partial 1st Ray, Open Approach (ICD-10-PCS; principal; 2021-05-04 17:30)
PROC: 0J9R0ZZ Drainage of Left Foot Subcutaneous Tissue and Fascia, Open Approach (ICD-10-PCS; 2021-05-06)
PROC: 0Y6Q0Z0 Detachment at Left 1st Toe, Complete, Open Approach (ICD-10-PCS; 2021-05-08)
DX: E10.69 Type 1 diabetes mellitus with other specified complication (principal); J96.01 Acute respiratory failure with hypoxia; M86.8X7 Other osteomyelitis, ankle and foot; N39.0 Urinary tract infection, site not specified; R65.10 Systemic inflammatory response syndrome (SIRS) of non-infectious origin without acute organ dysfunction; M86.9 Osteomyelitis, unspecified; E10.52 Type 1 diabetes mellitus with diabetic peripheral angiopathy with gangrene; I70.268 Atherosclerosis of native arteries of extremities with gangrene, other extremity; N18.6 End stage renal disease; E10.22 Type 1 diabetes mellitus with diabetic chronic kidney disease; E10.621 Type 1 diabetes mellitus with foot ulcer; K21.9 Gastro-esophageal reflux disease without esophagitis; E03.9 Hypothyroidism, unspecified; E10.65 Type 1 diabetes mellitus with hyperglycemia; E10.42 Type 1 diabetes mellitus with diabetic polyneuropathy; D63.1 Anemia in chronic kidney disease; L97.529 Non-pressure chronic ulcer of other part of left foot with unspecified severity; G92 Toxic encephalopathy; T41.45XA Adverse effect of unspecified anesthetic, initial encounter; Y92.234 Operating room of hospital as the place of occurrence of the external cause; R31.9 Hematuria, unspecified; E87.6 Hypokalemia; H91.90 Unspecified hearing loss, unspecified ear; Z79.01 Long term (current) use of anticoagulants; Z79.4 Long term (current) use of insulin; Z79.891 Long term (current) use of opiate analgesic; Z99.2 Dependence on renal dialysis; Z89.431 Acquired absence of right foot; Z86.718 Personal history of other venous thrombosis and embolism; Z88.0 Allergy status to penicillin
CPT/HCPCS: 99223-AI; 99232-AI; 99233-AI; 99239; J0692; J1644; J1756; J1815; J2250; J2270; J2704; J3010; J3370; J7030; J7050; P9016; Q5105